=== PATIENT | male | born 1970 | race African-American/Black ===

== ENCOUNTER 2023-01-01 19:00 | Emergency (ER) | payer MEDICAID ==
[~2023-01-01] VITALS: Ht 177.8 cm; Wt 91.0 kg
[2023-01-01 20:23] LABS: BASOPHILS % 0.5 % (0.0-2.0); EOSINOPHILS % 8.9 % (0.0-5.0); HEMATOCRIT. 38.1 % (42.0-52.0); LYMPHOCYTES % 24.4 % (20.0-50.0); MEAN CORPUSCULAR HEMOGLOBIN 38.7 pg (28.0-32.0); MEAN CORPUSCULAR VOLUME 113.1 fL (80.0-94.0); MEAN PLATELET VOLUME 6.9 fl (7.4-10.4); NEUTROPHILS % 61.2 % (40.0-76.0); PLATELET 293 x1000/uL (130-400); RED BLOOD CELL COUNT 3.37 mill/uL (4.7-6.1); RED CELL DISTRIBUTION WIDTH 15.4 % (11.6-14.6)
[2023-01-01 20:46] LABS: PLATELET ESTIMATE NORMAL
[2023-01-01 21:15] LABS: CHLORIDE 107 mEq/L (98-107)
[2023-01-01 21:24] LABS: ETHANOL BLOOD < 10 mg/dL
[2023-01-01 21:44] LABS: CLARITY URINE CLEAR (CLEAR); COLOR URINE YELLOW (YELLOW); KETONES URINE NEGATIVE (NEGATIVE); LEUKOCYTE ESTERASE URINE NEGATIVE (NEGATIVE); NITRITE URINE NEGATIVE (NEGATIVE); OCCULT BLOOD URINE NEGATIVE (NEGATIVE); PROTEIN URINE NEGATIVE (NEGATIVE); SPECIFIC GRAVITY URINE 1.011 (1.005-1.030); UROBILINOGEN URINE 0.2 E.U./dL (0.2-1.0)
[2023-01-01] MEDS ORDERED: ACETAMINOPHEN 325MG TABLET PO ONE (21:45)
[2023-01-01 21:59] LABS: *AMPHETAMINES SCREEN URINE NEGATIVE (NEGATIVE); *BARBITURATES SCREEN URINE NEGATIVE (NEGATIVE); *BENZODIAZEPINES SCREEN URINE NEGATIVE (NEGATIVE); *COCAINE SCREEN URINE NEGATIVE (NEGATIVE); CANNABINOID URINE SCREEN NEGATIVE (NEGATIVE); METHADONE URINE SCREEN NEGATIVE (NEGATIVE); OPIATES URINE SCREEN PRESUMTIVE POSITIVE (NEGATIVE); PHENCYCLIDINE URINE SCREEN NEGATIVE (NEGATIVE)
[2023-01-01] MEDS ORDERED: CEPH500C2 MT (22:51)
[2023-01-01 23:01] VITALS: BP 142/93
== END 2023-01-01 23:09 | disposition home or self-care (01) ==
LOC: ER 19:00
DX: R42 Dizziness and giddiness (principal); L02.214 Cutaneous abscess of groin; I10 Essential (primary) hypertension
CPT/HCPCS: 36415; 71045; 80053; 80305; 80320; 81003; 84484; 85025; 93005; 99285; G0480

== ENCOUNTER 2024-09-26 19:16 | Emergency (ER) | payer MEDICAID, OTHER ==
[~2024-09-26] VITALS: Ht 172.7 cm; Wt 116.0 kg
[~2024-09-26 19:16] MED LIST: CEPH500C2 MT
[2024-09-26 19:46] VITALS: BP 155/86; PULSE 76; RESP 18; TEMP 98.8; O2SAT 100
[2024-09-26] MEDS: KETOROLAC 15MG/ML VIAL IM ONE (21:46)
== END 2024-09-26 21:50 | disposition home or self-care (01) ==
LOC: ER 19:16
DX: M54.2 Cervicalgia (principal)
CPT/HCPCS: 99281; J1885